=== PATIENT | female | born 1980 | race Caucasian/White ===

== ENCOUNTER 2024-04-13 13:41 | Emergency (ER) | payer BC ==
[~2024-04-13] VITALS: Ht 175.3 cm; Wt 70.5 kg
[2024-04-13 13:57] LABS: BILIRUBIN,URINE NEGATIVE (Neg); CLARITY,URINE CLEAR (Clear); COLOR,URINE STRAW (Yellow); GLUCOSE, URINE NEGATIVE (Neg); KETONES,URINE NEGATIVE (Neg); LEUKOCYTE ESTERASE ,URINE NEGATIVE (Neg); NITRITES, URINE NEGATIVE (Neg); OCCULT BLOOD,URINE NEGATIVE (Neg); PH,URINE 5.5 (4.8-8.0); PROTEIN,URINE NEGATIVE (Neg); UROBILINOGEN,URINE 0.2 E.U/dL (0.2-1.0)
[2024-04-13 13:59] LABS: UA COLLECTION TYPE CLN CATCH MIDSTREAM
[2024-04-13 14:38] VITALS: BP 122/75; PULSE 100; RESP 16; TEMP 98.8; O2SAT 100
[2024-04-13] MEDS ORDERED: PHEN-716 PO (15:00)
[2024-04-13] MEDS ORDERED: CEPH-585 PO (15:00)
== END 2024-04-13 15:07 | disposition home or self-care (01) ==
LOC: ER 13:42
DX: R30.0 Dysuria (principal); Z91.041 Radiographic dye allergy status
CPT/HCPCS: 81003; 99283